=== PATIENT | male | born 1950 | race Caucasian/White ===

== ENCOUNTER 2018-04-30 17:05 | Inpatient (IN) | payer BC ==
[2018-04-30 17:19] VITALS: BMI 24.3
[2018-04-30] MEDS ORDERED: SODIUM CHLORIDE 0.9% 1000 ML INFUS.BAG IV ONE ×2 (18:07→20:00)
[2018-04-30 18:43] LABS: BASO % 0.7 % (0-2.0); EOS % 0.3 % (0-4.5); HEMATOCRIT 42.1 % (35.4-49); HEMOGLOBIN 14.4 GM/dL (11.7-16.9); LYMPH % 9.1 % (8-40); MCH 32.8 pg (25.7-33.7); MCHC 34.2 g/dl (32.0-35.9); MEAN CELL VOLUME 95.9 fl (80-96); MONO % 5.1 % (3.8-10.2); NEUT % 84.8 % (42.8-82.8); PLATELET COUNT 389 K/MM3 (134-434); RBC 4.39 M/mm3 (4.00-5.60); RDW 13.4 % (11.9-15.9); WHITE BLOOD COUNT 9.8 K/mm3 (4.0-10.0)
[2018-04-30 19:51] LABS: ALBUMIN 3.8 g/dl (3.4-5.0); ALK PHOS 156 U/L (45-117); ANION GAP 17 MMOL/L (8-16); BILIRUBIN,TOTAL 0.7 mg/dL (0.2-1); BLOOD UREA NITROGEN 23 mg/dL (7-18); CALCIUM 9.4 mg/dL (8.5-10.1); CHLORIDE 95 mmol/L (98-107); CO2 19 mmol/L (21-32); CREATININE 1.3 mg/dL (0.55-1.3); POTASSIUM 5.1 mmol/L (3.5-5.1); SGOT/AST 11 U/L (15-37); SGPT/ALT 19 U/L (13-61); SODIUM 130 mmol/L (136-145); TOT PROT 7.5 g/dl (6.4-8.2)
[2018-04-30 19:53] LABS: GLUCOSE,RANDOM 494 mg/dL (74-106)
[2018-04-30] MEDS ORDERED: INSULIN REGULAR 100 UNITS in SODIUM CHLORIDE 99 ML IVPB SCH (20:45)
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
[2018-04-30] MEDS ORDERED: INSULIN REGULAR HUMAN 100 UNITS/ML *VIAL SQ ONE (22:21)
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
[2018-04-30 23:02] LABS: URINE APPEARANCE CLEAR; URINE BILIRUBIN NEGATIVE (<2.0 mg/dL); URINE COLOR STRAW; URINE GLUCOSE (UA) 3+ (NEGATIVE); URINE KETONE 2+ (NEGATIVE); URINE LEUK ESTERASE NEGATIVE (NEGATIVE); URINE NITRITE NEGATIVE (NEGATIVE); URINE PROTEIN NEGATIVE (NEGATIVE); URINE UROBILINOGEN NEGATIVE mg/dL (0.2-1.0)
[2018-04-30] MEDS ORDERED: INSULIN REGULAR HUMAN 100 UNITS/ML *VIAL ONE (23:24)
[2018-04-30] MEDS ORDERED: SODIUM CHLORIDE 1,000 ML IV STA (23:30)
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
[2018-05-01 00:48] LABS: ALBUMIN 3.1 g/dl (3.4-5.0); ALK PHOS 126 U/L (45-117); ANION GAP 15 MMOL/L (8-16); BILIRUBIN,TOTAL 0.6 mg/dL (0.2-1); BLOOD UREA NITROGEN 21 mg/dL (7-18); CHLORIDE 107 mmol/L (98-107); CO2 16 mmol/L (21-32); CREATININE 1.2 mg/dL (0.55-1.3); POTASSIUM 4.5 mmol/L (3.5-5.1); SGOT/AST 11 U/L (15-37); SGPT/ALT 18 U/L (13-61); SODIUM 138 mmol/L (136-145); TOT PROT 6.3 g/dl (6.4-8.2)
[2018-05-01 01:00] LABS: GLUCOSE,RANDOM 321 mg/dL (74-106)
[2018-05-01] MEDS ORDERED: INSULIN (NOVOLOG) ASPART 100 UNITS/ML 10ML VIAL ONE (01:24)
[2018-05-01] MEDS ORDERED: INSULIN (NOVOLOG) ASPART 100 UNITS/ML 10ML VIAL SQ ONE (01:30)
[2018-05-01] MEDS ORDERED: SODIUM CHLORIDE 1,000 ML IV SCH (01:30)
[2018-05-01] MEDS ORDERED: DEXTROSE 5%-0.45% SALINE 1,000 ML IV SCH (04:00)
[2018-05-01] MEDS ORDERED: INSULIN REGULAR 100 UNITS in SODIUM CHLORIDE 99 ML IVPB SCH (04:05)
[2018-05-01 04:48] LABS: ANION GAP 7 MMOL/L (8-16); BLOOD UREA NITROGEN 19 mg/dL (7-18); CALCIUM 7.9 mg/dL (8.5-10.1); CHLORIDE 112 mmol/L (98-107); CO2 22 mmol/L (21-32); CREATININE 1.2 mg/dL (0.55-1.3); GLUCOSE,RANDOM 180 mg/dL (74-106); POTASSIUM 4.7 mmol/L (3.5-5.1); SODIUM 141 mmol/L (136-145)
[2018-05-01] MEDS ORDERED: INSULIN (LEVEMIR) 100 UNITS/ML UNITS SQ ONE ×2 (04:59→07:48)
[2018-05-01 07:55] LABS: ANION GAP 5 MMOL/L (8-16); BLOOD UREA NITROGEN 17 mg/dL (7-18); CALCIUM 7.5 mg/dL (8.5-10.1); CHLORIDE 112 mmol/L (98-107); CO2 22 mmol/L (21-32); GLUCOSE,RANDOM 114 mg/dL (74-106); MAGNESIUM 2.1 mg/dL (1.8-2.4); PHOSPHOROUS 1.4 mg/dL (2.5-4.9); POTASSIUM 3.9 mmol/L (3.5-5.1); SODIUM 139 mmol/L (136-145)
[2018-05-01 08:28] LABS: BASO % 0.4 % (0-2.0); EOS % 0.8 % (0-4.5); HEMATOCRIT 33.6 % (35.4-49); HEMOGLOBIN 11.8 GM/dL (11.7-16.9); LYMPH % 12.1 % (8-40); MCH 32.8 pg (25.7-33.7); MCHC 35.1 g/dl (32.0-35.9); MEAN CELL VOLUME 93.3 fl (80-96); MEAN PLT VOLUME 8.8 fl (7.5-11.1); MONO % 8.1 % (3.8-10.2); NEUT % 78.6 % (42.8-82.8); PLATELET COUNT 347 K/MM3 (134-434); RDW 12.9 % (11.9-15.9); WHITE BLOOD COUNT 11.4 K/mm3 (4.0-10.0)
[2018-05-01] MEDS: MUPIROCIN 2% TOPICAL OINTMENT FOR DECOLONIZATION NS SCH ×2 (10:49→23:58)
--- NOTE | 2018-05-01 12:52 | EKG ---
Test Reason : Blood Pressure : / mmHG Vent. Rate : 094 BPM Atrial Rate : 094 BPM P-R Int : 184 ms QRS Dur : 082 ms QT Int : 344 ms P-R-T Axes : 078 071 064 degrees QTc Int : 430 ms NORMAL SINUS RHYTHM NORMAL ECG WHEN COMPARED WITH ECG OF 27-MAY-2014 20:41, NO SIGNIFICANT CHANGE WAS FOUND Confirmed by BRICE GROVER MD ([id number]) on 05/01/2018 12:52:06 PM Referred By: Confirmed By:BRICE GROVER MD
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
[2018-05-01] MEDS ORDERED: INSULIN (LEVEMIR) 100 UNITS/ML UNITS SQ STA (18:24)
[2018-05-01] MEDS ORDERED: SODIUM PHOSPHATE - 30 MM in SODIUM CHLORIDE 500 ML IVPB ONE (18:30)
[2018-05-01] MEDS: ENOXAPARIN NA (PORCINE) 40 MG/0.4 ML DISP.SYRIN SQ SCH (18:46)
[2018-05-01 18:57] LABS: ANION GAP 10 MMOL/L (8-16); BLOOD UREA NITROGEN 15 mg/dL (7-18); CALCIUM 7.8 mg/dL (8.5-10.1); CHLORIDE 107 mmol/L (98-107); CO2 20 mmol/L (21-32); CREATININE 0.9 mg/dL (0.55-1.3); GLUCOSE,RANDOM 231 mg/dL (74-106); POTASSIUM 4.4 mmol/L (3.5-5.1); SODIUM 137 mmol/L (136-145)
[2018-05-01] MEDS ORDERED: CHLORHEXIDINE GLUCONATE 4% CLEANSER FOR DECOLONIZATION TP SCH (22:00)
[2018-05-01] MEDS: ATORVASTATIN CA 20 MG TABLET (FP) PO SCH (22:06)
[2018-05-02] MEDS: INSULIN SLIDING SCALE (NOVOLOG) 1 VIAL SQ SCH ×4 (06:20→21:54)
[2018-05-02 07:22] LABS: BASO % 0.8 % (0-2.0); EOS % 4.2 % (0-4.5); HEMATOCRIT 35.4 % (35.4-49); HEMOGLOBIN 12.3 GM/dL (11.7-16.9); LYMPH % 22.1 % (8-40); MCH 32.3 pg (25.7-33.7); MCHC 34.7 g/dl (32.0-35.9); MEAN CELL VOLUME 93.1 fl (80-96); MEAN PLT VOLUME 8.6 fl (7.5-11.1); NEUT % 62.9 % (42.8-82.8); PLATELET COUNT 327 K/MM3 (134-434); RDW 13.2 % (11.9-15.9); WHITE BLOOD COUNT 6.3 K/mm3 (4.0-10.0)
[2018-05-02 07:54] LABS: ALBUMIN 2.8 g/dl (3.4-5.0); ALK PHOS 117 U/L (45-117); ANION GAP 6 MMOL/L (8-16); BILIRUBIN,TOTAL 0.4 mg/dL (0.2-1); BLOOD UREA NITROGEN 12 mg/dL (7-18); CALCIUM 8.2 mg/dL (8.5-10.1); CHLORIDE 106 mmol/L (98-107); CO2 26 mmol/L (21-32); CREATININE 0.8 mg/dL (0.55-1.3); GLUCOSE,RANDOM 127 mg/dL (74-106); MAGNESIUM 1.8 mg/dL (1.8-2.4); POTASSIUM 3.9 mmol/L (3.5-5.1); SGOT/AST 14 U/L (15-37); SGPT/ALT 15 U/L (13-61); SODIUM 139 mmol/L (136-145); TOT PROT 5.7 g/dl (6.4-8.2)
[2018-05-02] MEDS: ENOXAPARIN NA (PORCINE) 40 MG/0.4 ML DISP.SYRIN SQ SCH (09:46)
[2018-05-02] MEDS: LOSARTAN POTASSIUM 50 MG TABLET (FP) PO SCH (09:46)
[2018-05-02] MEDS: ESCITALOPRAM OXALATE 10 MG TABLET (FP) PO SCH (09:46)
[2018-05-02] MEDS: amLODIPine BESYLATE 5 MG TABLET (FP) PO SCH (09:46)
[2018-05-02] MEDS ORDERED: [UNRECOGNIZED DRUG - OTHER] PO SCH (10:00)
[2018-05-02] MEDS ORDERED: INSULIN (LEVEMIR) 100 UNITS/ML UNITS SQ SCH (10:00)
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
[2018-05-02] MEDS: THIAMINE HCL 200 MG/2 ML VIAL IVPB SCH ×2 (15:20→21:30)
--- NOTE | 2018-05-02 18:06 | PN ---
Progress Note (short form) - Note Progress Note: Subjective: No acute events overnight. Pt remains forgetful at times. Pt denies any complaints and is wondering about long-term plan. Objective: 05/02/18 06:00 Temperature 97.6 F Pulse Rate 66 Respiratory 20 Rate Blood Pressure 142/62 Gen: NAD, awake, oriented x3, OOB to chair HEENT: NC/AT, EOMI, CATHERINE, sclera anicteric, MMM Neck: Supple, no lymphadenopathy, no nuchal rigidity Lungs: CTA b/l no wheezes or rhonchi noted. Cardiac: RRR no appreciable murmurs ABD: Soft, NT/ND, normoactive BS, no guarding, no hepatomegaly, no massess MSK: No CVA tenderness Neuro: CN II-XII intact. Strength 5/5 in upper and lower extremity merlos, sensation intact throughout, no dysmetria, no dysdiadochokinesia, wide-based gait observed Psych: Cooperative Skin: No rashes or lesions appreciated Current Medications Amlodipine Besylate (Norvasc -) 5 mg PO DAILY [facility] Last Admin: 05/02/18 09:46 Dose: 5 mg Atorvastatin Calcium (Lipitor -) 20 mg PO HS [facility] Last Admin: 05/01/18 22:06 Dose: 20 mg Enoxaparin Sodium (Lovenox -) 40 mg SQ DAILY [facility] Last Admin: 05/02/18 09:46 Dose: 40 mg Escitalopram Oxalate (Lexapro -) 10 mg PO DAILY [facility] Last Admin: 05/02/18 09:46 Dose: 10 mg Insulin Aspart (Novolog Vial Sliding Scale -) 1 vial SQ [facility]; Protocol Last Admin: 05/02/18 18:04 Dose: 8 units Insulin Detemir (Levemir Vial) 20 units SQ DAILY [facility] Last Admin: 05/02/18 10:03 Dose: 20 unit Losartan Potassium (Cozaar -) 100 mg PO DAILY [facility] Last Admin: 05/02/18 09:46 Dose: 100 mg Non-Formulary Medication (Mefloquine Hcl [Mefloquine Hcl]) 250 mg PO DAILY [facility] Thiamine HCl (Vitamin B1 Injection -) 250 mg IVPB TID [facility] Last Admin: 05/02/18 15:20 Dose: 250 mg A/P: Acute encephalopathy 2/2 to DKA (resolved) Memory deficit and gait disturbance HTN Mild leukocytosis (resolved) Hypophosphatemia (resolved) --DKA resolved --Continue Levemir 20U qDaily --Continue ISS with BGM ACHS --A1c ordered for AM labs --Recent cognitive decline with enlarged ventricles suggestive of either obstructive hydrocephalus vs. other cause --Neurology consulted B12, Folate, RPR, Thiamine supplementation ordered --Neurosurgery consulted --MRI w/o vinicius for further investigation of hydrocephalus. Possibility of LP for opening pressure measurement --Continue Physical therapy --Continue Norvasc 5mg qDaily --Continue Cozaar 100mg qDaily FEN: Fluids: None indicated; tolerating PO Electrolyte abnormalities: None currently Nutrition: PPX: DVT - Lovenox SQ GI - Not indicated Dispo: Continue monitoring; MRI for hydrocephalus investigation Case discussed with Dr. Wander Lechuga, DO - IM PGY-2
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
[2018-05-02] MEDS: ATORVASTATIN CA 20 MG TABLET (FP) PO SCH (21:30)
[2018-05-03] MEDS: THIAMINE HCL 200 MG/2 ML VIAL IVPB SCH ×3 (06:15→21:31)
[2018-05-03] MEDS: INSULIN SLIDING SCALE (NOVOLOG) 1 VIAL SQ SCH ×4 (06:19→21:31)
[2018-05-03 08:29] LABS: ANION GAP 3 MMOL/L (8-16); BLOOD UREA NITROGEN 15 mg/dL (7-18); CALCIUM 8.2 mg/dL (8.5-10.1); CHLORIDE 106 mmol/L (98-107); CO2 32 mmol/L (21-32); CREATININE 0.8 mg/dL (0.55-1.3); GLUCOSE,RANDOM 87 mg/dL (74-106); POTASSIUM 4.3 mmol/L (3.5-5.1); SODIUM 141 mmol/L (136-145)
[2018-05-03] MEDS: LOSARTAN POTASSIUM 50 MG TABLET (FP) PO SCH (11:10)
[2018-05-03] MEDS: ENOXAPARIN NA (PORCINE) 40 MG/0.4 ML DISP.SYRIN SQ SCH (11:10)
[2018-05-03] MEDS: amLODIPine BESYLATE 5 MG TABLET (FP) PO SCH (11:11)
[2018-05-03] MEDS: ESCITALOPRAM OXALATE 10 MG TABLET (FP) PO SCH (11:11)
[2018-05-03] MEDS: INSULIN (LEVEMIR) 100 UNITS/ML UNITS SQ SCH (11:20)
[2018-05-03] MEDS ORDERED: INSULIN (LEVEMIR) 100 UNITS/ML UNITS SQ ONE (11:44)
--- NOTE | 2018-05-03 13:10 | PN ---
Physical Exam: SUBJECTIVE: Patient seen this morning and has no complaints. States he would like to go home. Patient had no acute events overnight. OBJECTIVE: Vital Signs Temperature 97 F L 05/03/18 10:00 Pulse Rate 75 05/03/18 10:00 Respiratory Rate 18 05/03/18 10:00 Blood Pressure 149/58 L 05/03/18 10:00 O2 Sat by Pulse Oximetry (%) 98 05/03/18 10:00 GENERAL: The patient is awake, and alert HEAD: Normal with no signs of trauma. EYES: PERRL, extraocular movements intact, ENT: Ears normal, nares patent, oropharynx clear without exudates, LUNGS: Breath sounds equal, clear to auscultation bilaterally, HEART: Regular rate and rhythm, S1, S2 ABDOMEN: Soft, nontender, nondistended, normoactive bowel sounds, EXTREMITIES: 2+ pulses, warm, well-perfused, no edema. . PSYCH: Normal mood, normal affect. SKIN: Warm, dry, normal turgor, no rashes or lesions noted CBC, BMP 05/02/18 06:20 05/03/18 05:30 Active Medications Amlodipine Besylate (Norvasc -) 5 mg PO DAILY COUNT [facility]CLUDES [facility] Last Admin: 05/03/18 11:11 Dose: 5 mg Atorvastatin Calcium (Lipitor -) 20 mg PO HS [facility] Last Admin: 05/02/18 21:30 Dose: 20 mg Enoxaparin Sodium (Lovenox -) 40 mg SQ DAILY [facility] Last Admin: 05/03/18 11:10 Dose: 40 mg Escitalopram Oxalate (Lexapro -) 10 mg PO DAILY [facility] Last Admin: 05/03/18 11:11 Dose: 10 mg Insulin Aspart (Novolog Vial Sliding Scale -) 1 vial SQ [facility]; Protocol Last Admin: 05/03/18 06:19 Dose: Not Given Insulin Detemir (Levemir Vial) 25 units SQ DAILY@0700 [facility] Last Admin: 05/03/18 11:20 Dose: 25 units Losartan Potassium (Cozaar -) 100 mg PO DAILY [facility] Last Admin: 05/03/18 11:10 Dose: 100 mg Non-Formulary Medication (Mefloquine Hcl [Mefloquine Hcl]) 250 mg PO DAILY [facility] Thiamine HCl (Vitamin B1 Injection -) 250 mg IVPB TID [facility]CLUD[facility] Last Admin: 05/03/18 06:15 Dose: Not Given ASSESSMENT/PLAN: Patient is a 67 y/o male with a history of DM who was admitted for DKA and AMS #AMS, r/o NPH -CT: enlarged ventricles - Brain MRI: no ischemic change, no hemorrhage, mild supratentorial white matter gliosis medial temporal lobe, hippocampal atrophy, dilation lateral ventricles - f/u Dr. Holder, neurology - f/u Dr. Wilkins, possible obstruction - f/u MRI lumbar spine tonight - TSH WNL, f/u VB12, folate - RPR negative - continue PT: recommend use of cane - iron pending #DKA: resolved - Levemir 25 units sq daily - SS - A1C% 9.1 #HTN - amlodipine 5 mg po daily - losartan 100 mg po daily - stable #lower extremity edema - doppler negative - f/u echo - LUZ MARIA's applied #HLD - lipitor 20 mg po hs #DVT ppx - 40 mg sq daily #FEN - diabetic diet Dispo: f/u neuro and neurosurgery Visit type - Emergency Visit Emergency Visit: Yes ED Registration Date: 04/30/18 Care time: The patient presented to the Emergency Department on the above date and was hospitalized for further evaluation of their emergent condition. - New Patient This patient is new to me today: Yes Date on this admission: 05/03/18 - Critical Care Critical Care patient: No
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
--- NOTE | 2018-05-03 16:27 | PN ---
Progress Note (short form) - Note Progress Note: NEUROSURGERY Sitting up in chair Feels generally well today PE: AF, VSS General- slowly healing L knee wounds/scabs from one month ago Short term memory 2/3 in 5 min CN- mild R lower facial assymmetry; Motor- 5/5 without drift; Sensation- decreased B distal LE vibration; DTR- hyporeflexic, no LTS Gait- slightly wobbly and shuffling, + Romberg's WBC 6.3, Hgb 12.3, glucose 200-[address]- moderate ventricular dilatation of B lateral, third, and 4 th ventricles. Brain MRI-moderate lateral and third ventricular dilation > 4th; periventricular gliosis; no acute transependymal CSF flow Possible symptomatic NPH Consider diagnotic LP for opening pressure and clinical response Pt inclined to live with his symptoms at this time, however; even though he understands he could continue to deteriorate neurologically
[2018-05-03] MEDS ORDERED: INSULIN (NOVOLOG) ASPART 100 UNITS/ML 10ML VIAL ONE (17:11)
[2018-05-03] MEDS: ATORVASTATIN CA 20 MG TABLET (FP) PO SCH (21:31)
[2018-05-04] MEDS: THIAMINE HCL 200 MG/2 ML VIAL IVPB SCH ×3 (05:51→21:12)
[2018-05-04] MEDS: INSULIN (LEVEMIR) 100 UNITS/ML UNITS SQ SCH (06:12)
[2018-05-04] MEDS: INSULIN SLIDING SCALE (NOVOLOG) 1 VIAL SQ SCH ×4 (06:42→21:10)
[2018-05-04 07:23] LABS: ALK PHOS 129 U/L (45-117); ANION GAP 7 MMOL/L (8-16); BILIRUBIN,TOTAL 0.6 mg/dL (0.2-1); BLOOD UREA NITROGEN 16 mg/dL (7-18); CALCIUM 8.1 mg/dL (8.5-10.1); CHLORIDE 103 mmol/L (98-107); CO2 29 mmol/L (21-32); CREATININE 0.7 mg/dL (0.55-1.3); GLUCOSE,RANDOM 71 mg/dL (74-106); POTASSIUM 3.8 mmol/L (3.5-5.1); SGOT/AST 14 U/L (15-37); SGPT/ALT 18 U/L (13-61); SODIUM 139 mmol/L (136-145)
[2018-05-04 08:09] LABS: SERUM IRON SATURATION 15 % (15-55); TOTAL IRON BINDING CAPACITY 203 ug/dL (250-450); UIBC 172 ug/dL (111-343)
--- NOTE | 2018-05-04 10:01 | PN ---
Progress Note (short form) - Note Progress Note: NEUROLOGY PROGRESS: Events reviewed and discussed with staff. Consult from Dr. Wilkins read and appreciated. Dr. Mak's consultation is greatly appreciated. Pt's sister Ana present at bedside. She is his Health Care proxy in the event that he is incapacitated or incompetent. Pt receiving Thiamine IVP. Reports he is depressed, on lexapro 10 mg for approximately a month and "doesn' t think it helps" He wants to discuss with his son about interventions for hydrocephalus, including LP, prior to proceeding with shunt. Not sure if he wants any more tests including lumbar puncture at this time. B12= 645, TSH 1.34, Iron 31, TIBC 203 RPR non-reactive A1c 9.1 Brain MRI (reviewed): Markedly dilated lateral and third ventricles, out of proportion to mild atrophy, with bowing of the corpus collosum strongly suggesting NPH LS MRI (reviewed): Nl alignment. S/P L5S1 laminectomy and fusion. Mild Multilevel DJD, with large posterior osteophyte at L4 resulting in mild LS spinal stenosis. ELOY: remains in diaper NEURO EXAM: Recognizes me. March corrected to April, 2012. TRUMP PMURT 03/17 recall at 3 Full merlos appreciated Strength normal. Reflexes present at knees B/L. Absent AJ's. no FTN dystaxia. Romberg - Sensation: decreased vibratory sense R leg up to calf Gait: Wide based waddling, unsteady Impression: 1. 6 mos of progressive OMS, ataxia, and urinary incontinence c/w Normal Pressure Hydrocephalus (NPH) 2. Depression 3. Peripheral Neuropathy (c/w chronic diabetes) Suggest:Increase Lexapro to 20 mg daily Neuro f/u as outpatient to counselor aide patient when he is less depressed and to proceed with LP and timed walking test. MR cysternogram (CSF flow study) as out patient Outpatient PT with walker for gait Addition of FESO4 325 mg qd prior to discharge [employer] to ensure safety at home Thank you very much. Jeremi Holder MD.
[2018-05-04] MEDS: ESCITALOPRAM OXALATE 10 MG TABLET (FP) PO SCH (10:37)
[2018-05-04] MEDS: amLODIPine BESYLATE 5 MG TABLET (FP) PO SCH (10:37)
[2018-05-04] MEDS: LOSARTAN POTASSIUM 50 MG TABLET (FP) PO SCH (10:37)
[2018-05-04] MEDS: ENOXAPARIN NA (PORCINE) 40 MG/0.4 ML DISP.SYRIN SQ SCH (10:37)
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
--- NOTE | 2018-05-04 13:51 | PN ---
Physical Exam: SUBJECTIVE: Patient seen and examined. Patient reports no complaints today. No acute events overnight. OBJECTIVE: Vital Signs Temperature 98.2 F 05/04/18 06:25 Pulse Rate 84 05/04/18 06:25 Respiratory Rate 20 05/04/18 06:25 Blood Pressure 156/80 05/04/18 06:25 O2 Sat by Pulse Oximetry (%) 98 05/03/18 21:00 GENERAL: The patient is awake, and alert HEAD: Normal with no signs of trauma. EYES: PERRL, extraocular movements intact, ENT: Ears normal, nares patent, oropharynx clear without exudates, LUNGS: Breath sounds equal, clear to auscultation bilaterally, HEART: Regular rate and rhythm, S1, S2 ABDOMEN: Soft, nontender, nondistended, normoactive bowel sounds, EXTREMITIES: 2+ pulses, warm, well-perfused, no edema. . PSYCH: Normal mood, normal affect. SKIN: Warm, dry, normal turgor, no rashes or lesions noted CBC, BMP 05/02/18 06:20 05/04/18 05:40 Active Medications Active Medications Amlodipine Besylate (Norvasc -) 5 mg PO DAILY [facility] Last Admin: 05/04/18 10:37 Dose: 5 mg Atorvastatin Calcium (Lipitor -) 20 mg PO HS [facility] Last Admin: 05/03/18 21:31 Dose: 20 mg Enoxaparin Sodium (Lovenox -) 40 mg SQ DAILY [facility] Last Admin: 05/04/18 10:37 Dose: 40 mg Escitalopram Oxalate (Lexapro -) 20 mg PO DAILY [facility] Insulin Aspart (Novolog Vial Sliding Scale -) 1 vial SQ [facility]; Protocol Last Admin: 05/04/18 12:24 Dose: 4 units Insulin Detemir (Levemir Vial) 25 units SQ DAILY@0700 [facility] Last Admin: 05/04/18 06:12 Dose: 25 units Losartan Potassium (Cozaar -) 100 mg PO DAILY [facility] Last Admin: 05/04/18 10:37 Dose: 100 mg Non-Formulary Medication (Mefloquine Hcl [Mefloquine Hcl]) 250 mg PO DAILY [facility] Thiamine HCl (Vitamin B1 Injection -) 250 mg IVPB TID [facility] Last Admin: 05/04/18 05:51 Dose: 250 mg ASSESSMENT/PLAN: Patient is a 67 y/o male with a history of DM who was admitted for DKA and AMS #AMS, r/o NPH -CT: enlarged ventricles - Brain MRI: no ischemic change, no hemorrhage, mild supratentorial white matter gliosis medial temporal lobe, hippocampal atrophy, dilation lateral ventricles - f/u Dr. Holder, neurology - f/u Dr. Wilkins, possible obstruction - MRI lumbar spine: L3-L4 mild posterior annular bulge, L3-L5 no posterior disc herniation, left neural foramen narrowing, L5-S1 disc space narrowing, no bone marrow edema - TSH and VB12 WNL - RPR negative - continue PT: recommend use of cane - iron low 31 and TIBC low 203, f/u outpatient iron treatment #DKA: resolved - Levemir 25 units sq daily - SS - A1C% 9.1 #HTN - amlodipine 5 mg po daily - losartan 100 mg po daily - stable #lower extremity edema - doppler negative - LUZ MARIA's applied #depression - continue escitalopram 20 mg po daily #HLD - lipitor 20 mg po hs #DVT ppx - 40 mg sq daily #FEN - diabetic diet Dispo: f/u [facility] for competancy evaluation and discuss lumbar puncture further Visit type - Emergency Visit Emergency Visit: No - New Patient This patient is new to me today: No - Critical Care Critical Care patient: No
--- NOTE | 2018-05-04 14:46 | CON.PSY ---
Psychiatry Consult Chief Complaint: 67 year old male seen for Psych eval for capacity ro make decisions at this time. patient refused Lumbar Puncture as part of eval for confusion. patient is able to comprehend and seems relatable. - Previous Psychiatric Treatment Outpatient: Less than 6 mos ago Inpatient: None - Previous Substance Abuse Treatment Outpatient: None Inpatient: None - Reason for Previous Treatment Reason for Previous Treatment: Anxiety or Panic Disorder - Current Medications Current Medications: Active Medications Amlodipine Besylate (Norvasc -) 5 mg PO DAILY [facility] Last Admin: 05/04/18 10:37 Dose: 5 mg Atorvastatin Calcium (Lipitor -) 20 mg PO HS [facility] Last Admin: 05/03/18 21:31 Dose: 20 mg Enoxaparin Sodium (Lovenox -) 40 mg SQ DAILY [facility] Last Admin: 05/04/18 10:37 Dose: 40 mg Escitalopram Oxalate (Lexapro -) 20 mg PO DAILY [facility] Insulin Aspart (Novolog Vial Sliding Scale -) 1 vial SQ [facility]; Protocol Last Admin: 05/04/18 12:24 Dose: 4 units Insulin Detemir (Levemir Vial) 25 units SQ DAILY@0700 [facility] Last Admin: 05/04/18 06:12 Dose: 25 units Losartan Potassium (Cozaar -) 100 mg PO DAILY [facility] Last Admin: 05/04/18 10:37 Dose: 100 mg Non-Formulary Medication (Mefloquine Hcl [Mefloquine Hcl]) 250 mg PO DAILY [facility] Thiamine HCl (Vitamin B1 Injection -) 250 mg IVPB TID [facility] Last Admin: 05/04/18 05:51 Dose: 250 mg - Allergies Allergies: Allergies Allergy/AdvReac Type Severity Reaction Status Date / Time No Known Drug Allergies Allergy Verified 04/30/18 17:19 - Current Living Status Usual Living Arrangement: Alone - Current Mental Status Evaluation Appearance: Well Groomed Attitude: Cooperative - Affect Affect: Full Range Appropriateness: Appropriate to Content - Mood Mood: Euthymic - Speech/Language Expressive: Coherent - Psychomotor Activity Psychomotor Activity: Normal - Thought Process Thought Process: Intact - Thought Content Hallucinations: Absent Delusions: Absent - Self Perception Self Perception: No Impairment - Cognition Attention: Alert Orientation: Time Memory, Short Term: 2/3 Memory, Remote with Promptin/3 - Concentration Serial Sevens Intact: No Simple Calculations Intact: Yes - Abstraction Proverb Interpretation: Intact Judgement: Minimally Impaired - Insight Insight: Intact - Impulse Control Impulse Control: Minimally Impaired - Suicidal Ideation Suicidal Ideation: No - Homicidal Ideation Homicidal Ideation: No Assessment/Plan 1) patient has the Functional capacity to make decisions at this time.
[2018-05-04] MEDS: ATORVASTATIN CA 20 MG TABLET (FP) PO SCH (21:12)
--- NOTE | 2018-05-05 00:37 | ECHO ---
Version: 1 Name: LIBERTAD JOLLY Exam: Adult Echocardiogram Study Date: 05/04/2018, 1:01 PM Age: 67 Years MMode/2D Measurements & Calculations IVSd: 0.93 cm LVIDs: 2.49 cm LVIDd: 4.0 cm LVPWd: 0.96 cm LAV (MOD-bp): 46.8 ml Ao root diam: 2.49 cm LA dimension: 3.0 cm Doppler Measurements & Calculations MV E max kp: 96.5 cm/sec Med E/e': 10.2 MV A max kp: 97.5 cm/sec Med Peak E' Kp: 9.5 cm/sec MV E/A: 0.99 Lat E/e': 9.9 Lat Peak E' Kp: 9.8 cm/sec TR max kp: 215.1 cm/sec TR max P.6 mmHg Left Ventricle The left ventricle is normal in size. There is borderline concentric left ventricular hypertrophy. T he left ventricular ejection fraction is normal. Ejection Fraction = 60%. E/A reversal consistent with but n ot diagnostic of poor LV compliance. Mitral Valve There is mild mitral valve thickening. There is trace to mild mitral regurgitation. Tricuspid Valve There is mild tricuspid regurgitation. Pulmonic Valve There is mild pulmonic valve thickening. Mild pulmonic valvular regurgitation. Summary Statements The left ventricular ejection fraction is normal. Ejection Fraction = 60%. Mild pulmonic valvular regurgitation. There is mild pulmonic valve thickening. There is mild tricuspid regurgitation. There is mild mitral valve thickening. E/A reversal consistent with but not diagnostic of poor LV compliance There is trace to mild mitral regurgitation. The left ventricle is normal in size. There is borderline concentric left ventricular hypertrophy. Mir Herbert MD 05/05/2018, 12:36 AM Ordering Physician: Goyo Lechuga Performed By: Saima Karimi
[2018-05-05] MEDS: THIAMINE HCL 200 MG/2 ML VIAL IVPB SCH ×2 (06:36→14:22)
[2018-05-05] MEDS: INSULIN SLIDING SCALE (NOVOLOG) 1 VIAL SQ SCH ×4 (06:37→22:21)
[2018-05-05] MEDS: INSULIN (LEVEMIR) 100 UNITS/ML UNITS SQ SCH (06:37)
[2018-05-05] MEDS: LOSARTAN POTASSIUM 50 MG TABLET (FP) PO SCH (09:28)
[2018-05-05] MEDS: ESCITALOPRAM OXALATE 10 MG TABLET (FP) PO SCH (09:28)
[2018-05-05] MEDS: amLODIPine BESYLATE 5 MG TABLET (FP) PO SCH (09:28)
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
--- NOTE | 2018-05-05 13:03 | DS ---
Physical Exam: SUBJECTIVE: Patient unable to have lumbar puncture per radiology. Patient no complaints, no acute events overnight. OBJECTIVE: Vital Signs Temperature 98.3 F 05/05/18 15:07 Pulse Rate 82 05/05/18 15:07 Respiratory Rate 18 05/05/18 15:07 Blood Pressure 142/58 L 05/05/18 15:07 O2 Sat by Pulse Oximetry (%) 98 05/05/18 09:00 PHYSICAL EXAM GENERAL: The patient is awake, and alert HEAD: Normal with no signs of trauma. EYES: PERRL, extraocular movements intact, ENT: Ears normal, nares patent, oropharynx clear without exudates, LUNGS: Breath sounds equal, clear to auscultation bilaterally, HEART: Regular rate and rhythm, S1, S2 ABDOMEN: Soft, nontender, nondistended, normoactive bowel sounds, EXTREMITIES: 2+ pulses, warm, well-perfused, no edema. . PSYCH: Normal mood, normal affect. SKIN: Warm, dry, normal turgor, no rashes or lesions noted LABS CBC, BMP 05/02/18 06:20 05/04/18 05:40 HOSPITAL COURSE: Date of Admission:04/30/18 Patient admitted for altered mental status. Patient found to be in DKA. Patient treated with fluids and insulin. Patient regained mental status. Patient home insulin medication restarted. Per patients family patient, patient has been more forgetful and gait has changed. Per PT patient capable of walking and instructed to use a cane. Patient evaluated by Neurosurgery and Neurology. Suggested to have a lumbar puncture to rule out NPH. Patient will have this done as an outpatient. Spoke at length with patients sisters and specifically the Health care proxy about patients situation and state of health. Family unhappy with discharge on so patient sent on . CT: enlarged ventricles Brain MRI: no ischemic change, no hemorrhage, mild supratentorial white matter gliosis medial temporal lobe, hippocampal atrophy, dilation lateral ventricle MRI lumbar spine: L3-L4 mild posterior annular bulge, L3-L5 no posterior disc herniation, left neural foramen narrowing, L5-S1 disc space narrowing, no bone marrow edema Lower extremity doppler negative RPR negative, TSH and VB12 within normal limits Date of Discharge: 05/05/18 Minutes to complete discharge: 42 Discharge Summary Reason For Visit: DIABETIC KETOACIDOSIS Condition: Improved - Instructions Diet, Activity, Other Instructions: You were hospitalized here due to your high sugars. You were treated with insulin and some fluid and your sugar levels came out of a dangerous range. You will need to keep taking your insulin, but will likely need adjustments on the outside. Also it was found that you may some enlarged fluid compartments in your brain which may be leading to your memory problems. After speaking with our radiologists they did not recommend a spinal tap at this time. You were evaluated by neurology and neurosurgery and they are okay with you leaving the hospital and following up at their offices. MEDICATIONS: Please continue to take your Norvasc 5mg DAILY and Cozaar 100mg DAILY for your blood pressure Continue to take your Lexapro 20mg DAILY Please continue to take your Lipitor 20mg AT NIGHT for your cholesterol Please continue to take your Levemir 25 units AT NIGHT for your sugar levels Please check your sugar before each meal (breakfast, lunch, and dinner) and give the amount of insulin as below based on your score: Sugar Level Units Given 100-150 0 151-200 2 201-250 4 251-300 6 301-350 8 351-400 10 >400 10 and go to the ER Please use a cane to walk around while your walking is not normal to you. Please make an appointment with Dr. Leung to control your Diabetes. FOLLOW-UP Please follow-up with you primary care provider, Dr. Salguero in 1 week. He may want to adjust your insulin regiment depending on your sugars --Please keep a log of your sugar levels. Take them 3 times a day before meals and write down the time and day that they were taken Please follow-up with Dr. Holder for your memory issues. He may still want to do a spinal tap if the memory deficits worsen Referrals: Abdi Salguero MD [Staff Physician] - Jeremi Holder MD [Staff Physician] - Graham Medrano MD [Staff Physician] - Disposition: HOME - Home Medications Comprehensive Discharge Medication List: Ambulatory Orders Amlodipine Besylate 5 mg PO DAILY 04/30/18 Escitalopram Oxalate [Lexapro -] 10 mg PO DAILY 04/30/18 Insulin Glargine,Hum.rec.anlog [Lantus] 25 unit SQ DAILY 04/30/18 Insulin Lispro [Humalog] 20 unit SQ TID 04/30/18 Irbesartan [Avapro] 300 mg PO DAILY 04/30/18 Mefloquine HCl 250 mg PO DAILY 04/30/18 Sildenafil Citrate 50 mg PO DAILY 04/30/18 Simvastatin 40 mg PO HS 04/30/18 This patient is new to me today: No Emergency Visit: No Critical Care patient: No - Discharge Referral Referred to [facility] No
[2018-05-05] MEDS: THIAMINE HCL 100 MG TABLET (FP) PO SCH (14:26)
[2018-05-05] MEDS: ATORVASTATIN CA 20 MG TABLET (FP) PO SCH (22:21)
[2018-05-06] MEDS: INSULIN SLIDING SCALE (NOVOLOG) 1 VIAL SQ SCH ×2 (06:30→12:05)
[2018-05-06] MEDS: INSULIN (LEVEMIR) 100 UNITS/ML UNITS SQ SCH (06:33)
[2018-05-06] MEDS: THIAMINE HCL 100 MG TABLET (FP) PO SCH (10:15)
[2018-05-06] MEDS: LOSARTAN POTASSIUM 50 MG TABLET (FP) PO SCH (10:15)
[2018-05-06] MEDS: ESCITALOPRAM OXALATE 10 MG TABLET (FP) PO SCH (10:15)
[2018-05-06] MEDS: amLODIPine BESYLATE 5 MG TABLET (FP) PO SCH (10:15)
[2018-05-06 11:13] VITALS: BP 122/51; PULSE 78; TEMP 98.2
[2018-05-06] MEDS ORDERED: INSULIN (NOVOLOG) ASPART 100 UNITS/ML 10ML VIAL ONE ×2 (11:51→12:03)
== END 2018-05-06 13:53 | disposition home or self-care (01) | DRG 637 ==
LOC: JER 17:05 → JERBED 22:00 → J8W 05-01 13:19
PROVIDERS: ADMIT Internal Medicine; ATTEND Internal Medicine
DX: E11.10 Type 2 diabetes mellitus with ketoacidosis without coma (principal); G93.41 Metabolic encephalopathy; E87.1 Hypo-osmolality and hyponatremia; G91.0 Communicating hydrocephalus; E87.2 Acidosis; I10 Essential (primary) hypertension; E78.5 Hyperlipidemia, unspecified; E87.6 Hypokalemia; E83.39 Other disorders of phosphorus metabolism; E11.42 Type 2 diabetes mellitus with diabetic polyneuropathy; G51.0 Bell's palsy; R26.9 Unspecified abnormalities of gait and mobility; R32 Unspecified urinary incontinence; F10.10 Alcohol abuse, uncomplicated; F32.9 Major depressive disorder, single episode, unspecified; R60.0 Localized edema; Z91.14 Patient's other noncompliance with medication regimen; Z79.4 Long term (current) use of insulin
CPT/HCPCS: 36415; 70450-TC; 70551-TC; 71046-TC-FY; 72158-TC; 80048; 80053; 80307; 81003; 82009; 82140; 82550; 82607; 82962; 83036; 83540; 83550; 83735; 84100; 84443; 84484; 85025; 86593; 93005; 93010; 93306-TC; 93970-TC; 97116-GP; 97161-GP; 99285-25; J7030